=== PATIENT | male | born 1985 | race Caucasian/White ===

== ENCOUNTER 2016-08-10 22:11 | Emergency (ER) | payer OTHER ==
[~2016-08-10] VITALS: Ht 167.6 cm; Wt 77.6 kg
[~2016-08-10 22:11] MED LIST: ALBUTEROL SULF8.5 GM IH; ATHENOL325 MG PO; AUGMENTIN875 MG PO; AZITHROMYCIN250 MG1 PO; BACTRIM,SEPT1 TABLET PO; CELEXA40 MG PO; CIPRO500 MG PO; HYDROCODON-ACE1 EAC7 PO; KEFLEX500 MG PO; LEVAQUIN500 MG PO; MOTRIN800 MG PO; NAPROSYN500 MG PO; NASONEX17 GM BOTH NARES; NOHOMEMEDS; NORCO 5/3251 TABLET PO; OMEPRAZOLE20 MG PO; PERCOCET 5/31 TABLET PO; PREDNISONE20 MG PO; PREDNISONE50 MG PO; PRILOSEC20 MG PO; REMERON15 M2 PO; TESSALON PERLE100 MG PO; TRAZODONE HCL150 MG PO; TRILEPTAL300 MG PO; ULTRAM50 MG PO; XANAX0.25 MG PO; ZANTAC300 MG PO; ZOFRAN4 MG PO
[2016-08-10] MEDS ORDERED: TRAMADOL HCL50 MG PO (23:46)
[2016-08-10 23:54] VITALS: BP 120/77
== END 2016-08-10 23:54 | disposition home or self-care (01) ==
LOC: EME 22:11
DX: S00.83XA Contusion of other part of head, initial encounter (principal); S20.212A Contusion of left front wall of thorax, initial encounter; S00.432A Contusion of left ear, initial encounter; S00.412A Abrasion of left ear, initial encounter; S00.81XA Abrasion of other part of head, initial encounter; S20.312A Abrasion of left front wall of thorax, initial encounter; Y04.2XXA Assault by strike against or bumped into by another person, initial encounter; Y07.04 Female partner, perpetrator of maltreatment and neglect; F17.200 Nicotine dependence, unspecified, uncomplicated
CPT/HCPCS: 70486; 71101; 99281; 99284

== ENCOUNTER 2016-08-12 20:05 | Emergency (ER) | payer OTHER ==
[~2016-08-12] VITALS: Ht 175.3 cm; Wt 69.2 kg
[~2016-08-12 20:05] MED LIST changes: +TRAMADOL HCL50 MG PO
[2016-08-12 21:44] VITALS: BP 121/76
== END 2016-08-12 21:58 | disposition home or self-care (01) ==
LOC: EME → EDBD 20:05 → EME 20:05
DX: R51 Headache (principal); R07.9 Chest pain, unspecified; M54.9 Dorsalgia, unspecified; M25.552 Pain in left hip; M54.2 Cervicalgia; Y04.8XXA Assault by other bodily force, initial encounter; Y07.59 Other non-family member, perpetrator of maltreatment and neglect; G89.29 Other chronic pain; Z87.442 Personal history of urinary calculi; K21.9 Gastro-esophageal reflux disease without esophagitis; F95.2 Tourette's disorder; Z86.14 Personal history of Methicillin resistant Staphylococcus aureus infection; F17.200 Nicotine dependence, unspecified, uncomplicated
CPT/HCPCS: 70450; 71020; 72125; 73502; 99281; 99284

== ENCOUNTER → 2016-10-11 | Outpatient (CLI) | payer OTHER | END | disposition home or self-care (01) | LOC: NUC 09-25 13:00 | DX: R10.9 Unspecified abdominal pain (principal) | CPT/HCPCS: 78226; A9537 ==